=== PATIENT | female | born 1990 | race Caucasian/White ===

== ENCOUNTER 2017-02-07 11:55 | Outpatient (CLI) | payer OTHER ==
[~2017-02-07] VITALS: Ht 162.6 cm; Wt 65.6 kg
[2017-02-07 12:10] VITALS: BP 113/82
[2017-02-07] MEDS ORDERED: ZOLO50TA PO (12:19)
[2017-02-07] MEDS ORDERED: UNIS25TA2 PO (12:19)
[2017-02-07] MEDS ORDERED: PRENTAB9 PO (12:19)
[2017-02-07] MEDS ORDERED: ACET50TA PO (12:19)
--- NOTE | 2017-02-07 12:38 | IPNPDOC ---
Text Note Date of Service The patient was seen on 02/07/17. NOTE [id number] @ 1233 Pt presented to L&D Triage ambulatory with c/o fall on her bottom when she tripped over her dog at around 1000 today. Denies DFM, CTX, LOF and VB. S: Resting in bed in semi-fowlers. Denies CTXs or pain. spouse is at bedside O: VS- WNL FHR-150, moderate variability, + 10 x 10 accels, no decles CTX- irregular, > 20 min apart, resting tone palpated as soft A: 26 yo G1 @ 27+5 s/p fall. Occasional CTX P: Discharge home with strict return precautions for DFM, LOF, CTX and or vaginal bleeding. Return to L&D triage if she notes any CTXs or discomfort YO BRYANT CNM Feb 07, 2017 12:37
[2017-02-07 13:20] VITALS: BP 114/68
[2017-02-07 14:46] VITALS: BP 118/73
== END 2017-02-07 16:00 | disposition home or self-care (01) ==
LOC: M LDO 11:55
PROVIDERS: ATTEND Midwife
DX: O99.89 Other specified diseases and conditions complicating pregnancy, childbirth and the puerperium (principal); Z3A.27 27 weeks gestation of pregnancy; W18.31XA Fall on same level due to stepping on an object, initial encounter; Z88.0 Allergy status to penicillin; Y93.9 Activity, unspecified; Y92.9 Unspecified place or not applicable; Y99.8 Other external cause status

== ENCOUNTER 2017-04-29 08:33 | Inpatient (IN) | payer OTHER ==
[2017-04-29] MEDS: LACTATED RINGER'S 1000 ML IV (10:19)
[2017-04-29] MEDS: LR 1,000 ML IV ×2 (10:19→18:12)
[2017-04-29] MEDS: miSOPROStol 25 MCG 1/4 TAB (S0191) PO ×3 (10:29→18:00)
[2017-04-29 10:35] LABS: HEMATOCRIT 38.1 % (36.0-47.0); HEMOGLOBIN 13.4 g/dl (12.0-16.0); MEAN CORPUSCULAR HGB CONC 35.2 g/dl (32.0-36.5); MEAN CORPUSCULAR VOLUME 96.7 fl (80.0-96.0); PLATELET COUNT, AUTOMATED 123 10^3/uL (150-450); RED BLOOD COUNT 3.94 10^6/uL (4.00-5.40); RED CELL DISTRIBUTION WIDTH 11.7 % (11.5-14.5); WHITE BLOOD COUNT 9.8 10^3/uL (4.0-10.0)
[2017-04-29] MEDS: PROMETHAZINE INJ 25 MG/ML VIAL (J2550) IV (15:10)
[2017-04-29] MEDS: BUTORPHANOL 2 MG/ML INJ (J0595) IV (15:10)
[2017-04-29] MEDS ORDERED: FENTANYL 2MCG/ML ROPIVACAINE 0.2% IN 0.9% NACL 200ML IVBAG As Ordered (17:56)
[2017-04-29] MEDS ORDERED: ONDANSETRON 4MG/2ML VIAL (J2405) IV (19:15)
[2017-04-29] MEDS ORDERED: diphenhydrAMINE INJ 50MG/ML VIAL (J1200) IV (19:15)
[2017-04-29] MEDS ORDERED: LACTATED RINGER'S 1000 ML IV (19:15)
[2017-04-29] MEDS ORDERED: ePHEDrine INJ 50 MG/ML VIAL IV (19:15)
[2017-04-29] MEDS: FENTANYL/ROPIVACAINE/NACL BAG 200 ML EPIDURAL (19:15)
[2017-04-29] MEDS ORDERED: EPIDURAL/PCA KEYS XX (19:15)
[2017-04-29] MEDS ORDERED: REFRIGERATOR IV KEYS XX (19:15)
[2017-04-29] MEDS ORDERED: EPIDURAL COMMENT XX (19:15)
[2017-04-29] MEDS ORDERED: NALOXONE INJ 0.4 MG/1 ML VIAL (J2310) IV (19:15)
[2017-04-30] MEDS: OXYTOCIN DRIP 30 UNITS in APPROPRIATE DILUENT 1 EA IV ×2 (00:28→00:37)
[2017-04-30] MEDS ORDERED: MOM 30ML SUSPENSION UDC PO (00:45)
[2017-04-30] MEDS: LR 1,000 ML IV (01:39)
[2017-04-30] MEDS: DOCUSATE SODIUM 100 MG CAP PO (02:45)
[2017-04-30] MEDS: ACETAMINOPHEN 500 MG TAB PO ×2 (02:46→12:54)
[2017-04-30] MEDS: DIBUCAINE 1% OINTMENT 30GM TOP (02:54)
[2017-04-30] MEDS: PRENATAL VITAMINS CHEWABLE TABLET PO (07:48)
[2017-04-30] MEDS: IBUPROFEN 800 MG TAB PO ×2 (07:49→17:59)
[2017-04-30] MEDS: SERTRALINE HCL 50 MG TAB PO (21:03)
[2017-05-01] MEDS: IBUPROFEN 800 MG TAB PO ×2 (08:12→17:01)
[2017-05-01] MEDS: PRENATAL VITAMINS CHEWABLE TABLET PO (08:12)
[2017-05-01] MEDS: SERTRALINE HCL 50 MG TAB PO (20:01)
[2017-05-02] MEDS: ACETAMINOPHEN 500 MG TAB PO (00:42)
[2017-05-02] MEDS: IBUPROFEN 800 MG TAB PO ×2 (01:42→11:04)
[2017-05-02] MEDS: PRENATAL VITAMINS CHEWABLE TABLET PO (08:32)
[2017-05-02] MEDS: RHOGAM 300 MCG (1500 IU) INJ (J2790) IM (10:04)
[2017-05-02] MEDS: MEASLES,MUMPS,RUBELLA VACCINE INJ (MMR-II) (90707) SC (10:05)
== END 2017-05-02 10:25 | disposition home or self-care (01) | DRG 775 ==
LOC: M LDO 08:33 → M OBS 04-30 03:21 → M LDI 09:39
PROVIDERS: Obstetrics & Gynecology
PROC: 10E0XZZ Delivery of Products of Conception, External Approach (ICD-10-PCS; principal; 2017-04-30)
PROC: 0HQ9XZZ Repair Perineum Skin, External Approach (ICD-10-PCS; 2017-04-30)
DX: O99.344 Other mental disorders complicating childbirth (principal); Z37.0 Single live birth; Z3A.39 39 weeks gestation of pregnancy; F41.8 Other specified anxiety disorders; Z79.899 Other long term (current) drug therapy; Z88.1 Allergy status to other antibiotic agents; O70.0 First degree perineal laceration during delivery